=== PATIENT | female | born 1975 | race Caucasian/White ===

== ENCOUNTER 2018-04-05 21:45 | Emergency (ER) | payer SELFPAY ==
[2018-04-05 21:50] VITALS: BP 114/70
== END 2018-04-06 00:39 | disposition home or self-care (01) ==
LOC: ER 21:45 → EDBD 21:45 → ER 23:36
DX: G92 Toxic encephalopathy (principal); F10.920 Alcohol use, unspecified with intoxication, uncomplicated; Y90.0 Blood alcohol level of less than 20 mg/100 ml